=== PATIENT | male | born 1965 | race Caucasian/White ===

== ENCOUNTER → 2017-03-06 | Outpatient (CLI) | payer OTHER ==
[~2017-03-06] VITALS: Ht 190.5 cm; Wt 124.7 kg
[~2017-03-06] MED LIST: NORMAL SALINE IV ONE; SINCALIDE IV ONE
--- NOTE | 2017-03-06 10:08 | RAD ---
Indication:Abdominal pain Grayscale images of the abdomen were obtained. Comparison note is made of an abdominal ultrasound examination almost 11 years earlier Liver:No focal mass is seen in the visualized liver. Gallbladder:There is cholelithiasis. At least one stone is seen in the dependent portion of the gallbladder. The common bile duct diameter of approximately 3 mm is within normal limits Spleen:Normal Pancreas:Poorly visualized and largely obscured by gas Kidneys:Normal Abdominal aorta and IVC:Similar to the pancreas largely obscured. The most portions of the abdominal aorta and inferior vena cava which were seen appeared unremarkable Ancillary findings:None Impression:Cholelithiasis. Midline structures partially obscured
--- NOTE | 2017-03-06 11:40 | RAD ---
Radionuclide hepatobiliary scan with gallbladder ejection fraction, 03/06/2017: History: Epigastric pain and bloating Following IV injection of 5.5 mCi of technetium 99m Choletec there was prompt uptake of the radionuclide from the blood stream by the liver. Bile duct and small bowel activity is present at 10 minutes. Gallbladder activity develops at 50 minutes. Additional imaging of the gallbladder was performed following IV injection of 2.5 mcg of cholecystokinin. There is good gallbladder emptying with gallbladder ejection fraction calculated at 90%. IMPRESSION: Normal 1. Normal radionuclide hepatobiliary scan. 2. The gallbladder ejection fraction is 90%.
== END | disposition home or self-care (01) ==
LOC: US 07:38
PROVIDERS: ATTEND Internal Medicine Gastroenterology
DX: K80.20 Calculus of gallbladder without cholecystitis without obstruction (principal); R14.0 Abdominal distension (gaseous)
CPT/HCPCS: 76700; 78226; 96374; 96375; A9537; J2805